=== PATIENT | female | born 1975 | race Caucasian/White ===

== ENCOUNTER 2019-11-04 08:15 | Day surgery (SDC) | payer BC ==
[2019-11-02 16:57] VITALS: BMI 36.0
--- NOTE | 2019-11-04 07:47 | P.GSHP ---
History of Present Illness H&P Date: 11/04/19 CHIEF COMPLAINT: GERD and colon screen HISTORY OF PRESENT ILLNESS: The patient is a 44-year-old female who presents with gastroesophageal reflux disease and need for colon screen. Upper and lower endoscopy were offered for further evaluation and management. PAST MEDICAL HISTORY: Please see list. PAST SURGICAL HISTORY: Please see list. MEDICATIONS: Please see list. ALLERGIES: Please see list. SOCIAL HISTORY: No illicit drug use FAMILY HISTORY: No reports of Crohn disease or ulcerative colitis. REVIEW OF ORGAN SYSTEMS: CONSTITUTIONAL: No reports of fevers or chills. GI: Denies any blood in stools or constipation. PHYSICAL EXAM: VITAL SIGNS: Stable GENERAL: Well-developed pleasant in no acute distress. HEENT: No scleral icterus. Extraocular movements grossly intact. Moist buccal mucosa. NECK: Supple without lymphadenopathy. CHEST: Unlabored respirations. Equal bilateral excursions. CARDIOVASCULAR: Regular rate and rhythm. Distal 2+ pulses. ABDOMEN: Soft, nondistended. MUSCULOSKELETAL: No clubbing, cyanosis, or edema. ASSESSMENT: 1. Gastroesophageal reflux disease 2. Colon screen. PLAN: 1. Recommend proceeding with an upper and lower endoscopy Past Medical History Past Medical History: COPD, GERD/Reflux, Hypertension Additional Past Medical History / Comment(s): RECTAL BLEEDING History of Any Multi-Drug Resistant Organisms: None Reported Past Surgical History: Hysterectomy Additional Past Surgical History / Comment(s): CARPAL TUNNEL RELEASE- BILATERAL, LEEP SURGERY , Past Anesthesia/Blood Transfusion Reactions: Motion Sickness Smoking Status: Current every day smoker - Past Family History Brother(s) Family Medical History: Cancer Mother Family Medical History: Cancer Medications and Allergies Home Medications Medication Instructions Recorded Confirmed Type Carvedilol [Coreg] 1.563 mg PO BID 11/02/19 11/02/19 History PARoxetine HCL [Paxil] 10 mg PO HS 11/02/19 11/02/19 History PARoxetine [Paxil] 20 mg PO DAILY 11/02/19 11/02/19 History Allergies Allergy/AdvReac Type Severity Reaction Status Date / Time No Known Allergies Allergy Verified 11/02/19 16:54
[~2019-11-04 08:15] MED LIST: LACTATED RINGERS 1,000 ML IV SCH
[2019-11-04 08:40] VITALS: TEMP 98.4
[2019-11-04] MEDS ORDERED: LIDOCAINE 1% 20 ML VIAL (10MG/ML) FOR IV START INTRADERMA ONE (08:45)
[2019-11-04] MEDS ORDERED: LIDOCAINE 1% INJ 10MG/ML (20 ML MDV) ONE (09:05)
[2019-11-04] MEDS ORDERED: PROPOFOL 10 MG/ML 20 ML VIAL IV ONE (09:05)
--- NOTE | 2019-11-04 09:43 | P.PCN ---
Date of Procedure: 11/04/19 Description of Procedure: PREOPERATIVE DIAGNOSIS: Gastroesophageal reflux disease. Morbid obesity due to excess calories, BMI 35.1 POSTOPERATIVE DIAGNOSIS: Gastroesophageal reflux disease. Morbid obesity due to excess calories, BMI 35.1 Gastritis, superficial acute with bleeding OPERATION: Esophagogastroduodenoscopy with biopsies along antrum. SURGEON: Karli Moreno MD ANESTHESIA: MAC. INDICATIONS: The patient is a 46-year-old female who presents with a history of reflux disease. Benefits and risks of the procedure were described. Informed consent was obtained. DESCRIPTION: The patient was brought into the endoscopy suite and laid in the left lateral decubitus position. An Olympus gastroscope was passed along the posterior oropharynx down to the distal esophagus where the squamocolumnar junction was encountered at 40 cm from the incisors. The stomach was entered and no bile reflux was found. Additional findings are listed below. Biopsies with cold forceps were obtained of the antrum. The first through third portion of the duodenum was examined and unremarkable. Retroflexion of the scope confirmed Hill grade 3 lower esophageal valve. The squamocolumnar junction demonstrated LA grade B erosive esophagitis. The stomach was desufflated. The patient tolerated the procedure well. FINDINGS: Squamocolumnar junction 40 cm from the incisors. Diaphragmatic hiatus at 40 cm. Hill grade 3 lower esophageal valve. LA grade B erosive esophagitis. No active duodenitis. Acute on chronic superficial gastritis with recent bleed RECOMMENDATIONS: Proton pump inhibitor 4 weeks Tobacco cessation Upper endoscopy as needed.
--- NOTE | 2019-11-04 09:49 | P.PCN ---
Date of Procedure: 11/04/19 Description of Procedure: PREOPERATIVE DIAGNOSIS: Rectal bleeding POSTOPERATIVE DIAGNOSIS: Tubular adenoma rectosigmoid junction colon Rectal bleeding External hemorrhoids Internal hemorrhoids OPERATION: Colonoscopy to the ileocecal valve and appendiceal orifice. Colonoscopy with multiple hot snare polypectomies Colonoscopy with injection of Ivelisse ink, 3 mL, rectosigmoid junction SURGEON: Karli Moreno MD. ANESTHESIA: MAC. INDICATIONS: The patient is an 44-year-old female who presents with rectal bleeding. Benefits and risks were described and informed consent was obtained. DESCRIPTION OF PROCEDURE: The patient had undergone Suprep. She had been brought into the operating room and laid in the left lateral decubitus position. After adequate intravenous sedation, the rectum was examined with 2% lidocaine jelly. External hemorrhoids were encountered. The rectal tone was within normal limits. No lesions were palpated in the rectal vault. An Olympus colonoscope was advanced until the ileocecal valve and appendiceal orifice were clearly viewed. The prep was fair. No sigmoid diverticulosis was encountered. A 1.8 cm firm tubovillous adenoma at 15 cm from the anal verge was snare polypectomy with multiple passes including rotatable snare with incomplete resection, 80%. Injection of Ivelisse ink, 3 mL was placed at the tumor circumferentially. No evidence of focal colitis was found. Retroflexion of the scope demonstrated grade 2 internal hemorrhoids without active bleeding or inflammation. The colon was desufflated. The patient had tolerated the procedure well. Withdrawal time was over 6 minutes. FINDINGS: Aronchick preparation quality scale 2 (1-5) Internal hemorrhoids, grade 2 External hemorrhoids, grade 2 No arteriovenous malformations. Removal of 1 polyp: - Snare polypectomy 15 cm from the anal verge, 18 mm tubulovillous adenoma polyp. Injection of Ivelisse ink 3 mL No focal colitis. RECOMMENDATIONS: Recommend repeat lower endoscopy in 3 to 6 months for complete resection Plan - Discharge Summary Discharge Rx Participant: No New Discharge Prescriptions: No Action PARoxetine [Paxil] 20 mg PO DAILY PARoxetine HCL [Paxil] 10 mg PO HS Carvedilol [Coreg] 3.125 mg PO BID Discharge Medication List Carvedilol [Coreg] 3.125 mg PO BID 11/02/19 [History] PARoxetine HCL [Paxil] 10 mg PO HS 11/02/19 [History] PARoxetine [Paxil] 20 mg PO DAILY 11/02/19 [History] Follow up Appointment(s)/Referral(s): Karli Moreno MD [STAFF PHYSICIAN] - 11/16/19 Patient Instructions/Handouts: Colorectal Polyps (GEN), Gastritis (DC), How to Stop Smoking (DC) Discharge Disposition: HOME SELF-CARE
[2019-11-04 10:08] VITALS: BP 126/68; PULSE 95; RESP 16
== END 2019-11-04 10:25 | disposition home or self-care (01) ==
LOC: ORWHC2ENDO 08:15
PROVIDERS: ATTEND Surgery Plastic and Reconstructive Surgery
DX: D12.7 Benign neoplasm of rectosigmoid junction (principal); N80.5 Endometriosis of intestine; K64.1 Second degree hemorrhoids; K21.0 Gastro-esophageal reflux disease with esophagitis; E66.01 Morbid (severe) obesity due to excess calories; Z68.35 Body mass index [BMI] 35.0-35.9, adult; K29.01 Acute gastritis with bleeding; K29.31 Chronic superficial gastritis with bleeding; K44.9 Diaphragmatic hernia without obstruction or gangrene; I10 Essential (primary) hypertension; J44.9 Chronic obstructive pulmonary disease, unspecified; F17.200 Nicotine dependence, unspecified, uncomplicated; Z90.710 Acquired absence of both cervix and uterus; Z98.890 Other specified postprocedural states; Z79.899 Other long term (current) drug therapy; Z85.9 Personal history of malignant neoplasm, unspecified; Z17.0 Estrogen receptor positive status [ER+]
CPT/HCPCS: 88305; 88342; 88341; 45385; 43239; J2001; J2704; 45381